=== PATIENT | male | born 1970 | race Caucasian/White ===

== ENCOUNTER → 2019-02-28 08:29 | Outpatient (CLI) | payer OTHER, SELFPAY ==
[2019-02-28 10:23] LABS: Hematocrit 45.2 % (40-54); Hemoglobin 15.3 g/dl (13.0-16.5); Mean Corp Hgb Conc 33.8 g/gl (32-36); Mean Corpuscular Volume 88.6 fL (80-94); Mean Platelet Vol. 10.3 fl (6.2-12.0); Platelet Count 201 K/mm3 (150-450); RBC Distribution Width CV 13.3 % (11.6-14.6); RBC Distribution Width SD 43.1 fl (35.1-43.9); White Blood Count 7.8 K/mm3 (4.4-11.0)
[2019-02-28 10:26] LABS: Scan Indicated on CBC? Y/N NO
[2019-02-28 10:41] LABS: Vitamin B12 487 pg/mL (211-911); Vitamin D,25 Hydroxy 16.2 ng/mL (29.95-100.01)
[2019-02-28 10:50] LABS: BUN 16 mg/dL (7-18); Creatinine, Serum 1.06 mg/dL (0.70-1.30); EST Glomerular Filtration Rate 78 mL/min (>60); Glucose 104 mg/dL (74-106)
[2019-02-28 10:51] LABS: ALB/GLOB Ratio 1.3 RATIO (0.9-2.4); AST(SGOT) 26 U/L (15-37); Alanine Aminotransfer ALT/SGPT 39 U/L (16-61); Albumin, Serum 4.2 g/dL (3.2-5.0); Alkaline Phosphatase 96 U/L (45-117); Anion Gap 5 (5-15); BUN/Creat Ratio 15.1 RATIO (10-20); Calcium,Total 9.4 mg/dL (8.5-10.1); Chloride 109 mmol/L (98-107); Cholesterol 275 mg/dL (200); Est Glom Filt Rate - Afr Amer 95 mL/min (>60); Globulin 3.2 g/dL (2.2-4.2); High Density Lipoprotein 58 mg/dL; Potassium 3.9 mmol/L (3.5-5.1); Protein, Total 7.4 g/dL (6.4-8.2); Sodium Level 139 mmol/L (136-145); Thyroid Stim Hormone (TSH) 1.85 uIU/mL (0.358-3.74); Triglycerides 172 mg/dL; Very Low Density Lipoprotein 34 mg/dL (5-40)
== END ==
PROVIDERS: Family Provider Family Medicine; PCP Family Medicine; Visit Provider Family Medicine
DX: R03.0 Elevated blood-pressure reading, without diagnosis of hypertension (principal); R53.83 Other fatigue
CPT/HCPCS: 36415; 80053; 80061; 82306; 82607; 84443; 85027

== ENCOUNTER 2022-01-08 09:57 | Emergency (ER) | payer OTHER, SELFPAY ==
[2022-01-08 10:00] VITALS: BP 138/102; PULSE 101; RESP 17; TEMP 36.2; O2SAT 97; BMI 32.8
--- NOTE | 2022-01-08 10:46 | ED.VIS.LOWEX ---
HPI History of Present Illness Chief Complaint: Lower Extremity Injury Informant: patient Occured/Mechanism Mechanism/Context: Yes other see comment below Comment: Slipped Onset/Context/Timing Onset: Today Context: Sudden Onset Timing: Continuous Quality of Pain: Aching Location: Right calf Current Severity: Mild Maximum Severity: Moderate Worsened by: Walking Relieved by: Remaining still Associated Symptoms Associated Symptoms: Negative for Parasthesia, Weakness and Loss of Funtion Narrative Narrative: Patient works for the [employer]. He was outside on an embankment, he slipped, he describes his right foot/ankle as hyper plantar flexing and he had an acute pain and felt a pop in his right calf. He has been able to ambulate since then but with pain. Pain has been in his calf, no pain in the knee, ankle, foot, or elsewhere. He did not have an actual fall. PFSH PFSH Medical History no medical history no medical history Home Medications No Known/Unobtainable [No Known Home Medications] 11/01/16 [History Last Taken Unknown] Allergy/AdvReac Type Severity Reaction Status Date / Time No Known Allergies Allergy Verified 01/08/22 09:58 Social History Smoking Status: Never smoker ROS ROS ED Constitutional Constitutional ED: Denies chills or fever(s) Musculoskeletal Musculoskeletal: Reports extremity pain; Denies neck pain Integumentary Denies Abrasions, rash or wounds Neurologic Neurologic: Denies paresthesias or weakness EXAM Physical Exam Const Vital Signs: 01/08/22 10:00 Temperature 97.2 F L Temperature Source Temporal Pulse Rate 101 H Respiratory Rate 17 Blood Pressure 138/102 H Blood Pressure Mean 114 Pulse Ox 97 Oxygen Delivery Method Room Air Positive well nourished and well developed General Appearance ED: well developed and NAD Neck full ROM and supple Back/Spine normal ROM and normal to inspection Extremity normal to inspection and full ROM Extremity Narrative: Mild tenderness at one particular point in the middle of the posterior right calf muscle. Patient indicates that it looks like there is some bruising just medial and distal to this, which is difficult to appreciate; there is no candi purpura/ecchymosis present. No palpable nodule or cord. Pain is able to be reproduced when the patient plantar flexes against resistance, there is no significant pain with passive stretching of the posterior compartments. Neuro oriented x3, no focal motor deficits and no sensory deficits noted Sensorium / Orientation: alert Psych mental status grossly normal and thought process normal Skin no wounds Rashes: no rashes MDM MDM MDM Narrative Medical decision making narrative: Patient has no pain at the tendinous insertions in the popliteal fossa, nor does he have any deformity of the muscle or asymmetry with regards to the calf. I suspect he tore part of the calf muscle without rupturing the entire attachment. This could certainly cause some bruising that the patient is seen, I am having trouble appreciating that but certainly could be there and could certainly be worse in the near future. His compartments are nice and soft, and he is neurovascularly intact distally with a 2+/4 dorsalis pedis pulse. We will place him in a walking boot, advised NSAIDs, given appropriate restrictions and follow-up with [facility]. He does not have any bony tenderness in the tibia, fibula, or elsewhere so I do not think he needs any x-rays right now. His ankle is nontender and I can move his ankle in all directions and he has no pain there, just the calf with plantarflexion. Discharge Plan Triage Chief Complaint: Lower Extremity Injury ED Provider: [facility] Dx/Rx/DC Orders Clinical Impression: Traumatic rupture of right gastrocnemius muscle Instructions: ED Muscle Strain, Extremity Prescriptions: No Action No Known Home Medications RF: 0 Primary Care Provider: Jasen Mehta Referrals: [facility] [GROUP OF PHYSICIANS] - As soon as possible Jasen Mehta MD [Primary Care Provider] - Disposition Disposition: Home, Self Care
--- NOTE | 2022-01-08 11:14 | ED.RN ---
RN CONTACTED THE FOLLOWING PEOPLE TO VERIFY IF PT NEEDS A POST ACCIDENT DRUG SCREEN UNSUCCESSFULLY MAREK AT [phone] AND LEFT VOICEMAIL ABDUKLADIR ENGLISH [phone] LUC WHO IS IN SAFETY STATES SHE DOES NOT MAKE THAT CALL AND TO HAVE THE SCIENTIFIC AFFAIRS MANAGER CALL JAZMYNE BUTT AND VERIFY FOR DRUG SCREEN. JAZMYNE STATES NO DRUG SCREEN NEEDED.
== END 2022-01-08 11:25 | disposition home or self-care (01) ==
PROVIDERS: Emergency Provider Emergency Medicine; PCP Family Medicine; Visit Provider Emergency Medicine
DX: S86.111A Strain of other muscle(s) and tendon(s) of posterior muscle group at lower leg level, right leg, initial encounter (principal); W01.0XXA Fall on same level from slipping, tripping and stumbling without subsequent striking against object, initial encounter; Y93.9 Activity, unspecified; Y92.9 Unspecified place or not applicable
CPT/HCPCS: 99283

== ENCOUNTER → 2022-08-18 | Outpatient (CLI) | payer OTHER, SELFPAY ==
[2022-08-18 12:08] LABS: Hematocrit 43.6 % (40-54); Hemoglobin 14.7 g/dL (13.0-16.5); Mean Corp Hgb Conc 33.7 g/dL (32-36); Mean Corpuscular Hgb 30.8 pg (27.0-32.0); Mean Corpuscular Volume 91.4 fL (80-94); Mean Platelet Vol. 10.6 fl (6.2-12.0); Platelet Count 191 K/mm3 (150-450); RBC Distribution Width CV 12.8 % (11.6-14.6); Red Blood Count 4.77 M/mm3 (4.6-6.2); White Blood Count 4.9 K/mm3 (4.4-11.0)
[2022-08-18 13:03] LABS: ALB/GLOB Ratio 1.1 RATIO (0.9-2.4); AST(SGOT) 27 U/L (15-37); Alanine Aminotransfer ALT/SGPT 35 U/L (16-61); Alkaline Phosphatase 92 U/L (45-117); Anion Gap 8 (5-15); BUN 15 mg/dL (7-18); Calcium,Total 9.6 mg/dL (8.5-10.1); Chloride 108 mmol/L (98-107); Cholesterol 284 mg/dL (200); Creatinine, Serum 0.94 mg/dL (0.70-1.30); EST Glomerular Filtration Rate 89 mL/min (>60); Est Glom Filt Rate - Afr Amer 108 mL/min (>60); GGTP 51 U/L (15-85); Globulin 3.6 g/dL (2.2-4.2); Glucose 112 mg/dL (74-106); High Density Lipoprotein 61 mg/dL; PSA,Total - Annual Screen 0.39 ng/mL (0.00-4.00); Potassium 3.9 mmol/L (3.5-5.1); Protein, Total 7.6 g/dL (6.4-8.2); Sodium Level 139 mmol/L (136-145); Triglycerides 112 mg/dL; Uric Acid 6.3 mg/dL (3.5-7.2); Very Low Density Lipoprotein 22 mg/dL (5-40)
== END | disposition home or self-care (01) ==
LOC: MFPLAB 09:44
PROVIDERS: PCP Family Medicine; Visit Provider Family Medicine
DX: I10 Essential (primary) hypertension (principal); F10.10 Alcohol abuse, uncomplicated; M79.671 Pain in right foot; E55.9 Vitamin D deficiency, unspecified; Z12.5 Encounter for screening for malignant neoplasm of prostate
CPT/HCPCS: 36415; 80053; 80061; 82306; 82977; 84153; 84443; 84550; 85027; G0103